=== PATIENT | male | born 1975 | race Caucasian/White ===

== ENCOUNTER 2024-12-13 21:54 | Emergency (ER) | payer BC, MEDICAID ==
[2024-12-13] MEDS ORDERED: Acetaminophen/HYDROcodone 325-5 MG Tab PO ONE (21:55)
[2024-12-13] MEDS: Acetaminophen/HYDROcodone 325-5 MG Tab PO ONE (22:54)
[2024-12-14] MEDS: Acetaminophen/HYDROcodone 325-5 MG Tab PO ONE (00:57)
[2024-12-14 02:06] VITALS: BP 126/94; PULSE 105
== END 2024-12-14 01:04 | disposition home or self-care (01) ==
LOC: FB.ED 21:54
DX: S00.01XA Abrasion of scalp, initial encounter (principal); S00.81XA Abrasion of other part of head, initial encounter; I10 Essential (primary) hypertension; J45.909 Unspecified asthma, uncomplicated; Z90.49 Acquired absence of other specified parts of digestive tract; Y04.8XXA Assault by other bodily force, initial encounter
CPT/HCPCS: 70450; 99284; A9270